=== PATIENT | female | born 1985 | race Caucasian/White ===

== ENCOUNTER 2019-08-09 17:15 | Observation (INO) ==
[2019-08-09 18:47] LABS: Bilirubin,Urine Negative (Negative); Blood,Urine Negative (Negative); Clarity,Urine Clear (Clear); Color,Urine Yellow (Yellow); Glucose,Urine (UA) Normal (Normal); Ketones,Urine Negative (Negative); Leukocyte Esterase,Urine Negative (Negative); Nitrite,Urine Negative (Negative); Protein,Urine Negative (Neg-Trace); Specific Gravity,Urine 1.022 (1.010-1.025); Urobilinogen,Urine Normal (Normal)
[2019-08-09] MEDS ORDERED: Ketorolac 15 MG/ML VIAL IVP ONE (19:27)
[2019-08-09 19:47] LABS: Basophils % 0.1 %; Eosinophils % 0.4 %; Hematocrit 40.4 % (35.3-44.9); Hemoglobin 14.3 g/dL (11.5-15.4); Immature Granulocytes % 0.5 % (0-4); Lymphocytes # 1.5 K/mcL (0.6-4.6); Lymphocytes % 19.2 %; Mean Corpuscular HGB Conc 35.4 g/dL (31.6-35.5); Mean Corpuscular Hemoglobin 30.7 pg (28.0-33.3); Mean Corpuscular Volume 86.7 fL (83.0-100.0); Mean Platelet Volume 11.2 fL (9.4-12.4); Monocytes # 0.5 K/mcL (0.0-1.3); Monocytes % 5.7 %; Neutrophils # 5.8 K/mcL (1.6-8.9); Platelet Count 256 K/mcL (140-400); Red Blood Count 4.66 M/mcL (3.82-4.97); Red Cell Distribution Width 12.9 % (11.5-14.5); Segmented Neutrophils % 74.1 %; White Blood Count 7.9 K/mcL (4.3-11.1)
[2019-08-09 20:05] LABS: Alanine Aminotransferase 34 Units/L (7-52); Albumin 4.2 g/dL (3.5-5.7); Albumin/Globulin Ratio 1.3 (1.1-2.2); Alkaline Phosphatase 64 Units/L (34-104); Aspartate Amino Transferase 16 Units/L (13-39); BUN/Creatinine Ratio 11 (6-26); Bilirubin,Direct 0.1 mg/dL (0.0-0.2); Bilirubin,Indirect 0.5 mg/dL (0.0-1.0); Bilirubin,Total 0.6 mg/dL (0.3-1.0); Blood Urea Nitrogen 7 mg/dL (6-20); Calcium 8.8 mg/dL (8.6-10.3); Carbon Dioxide 25 mEq/L (23-29); Chloride 105 mEq/L (98-107); Globulin 3.2 g/dL (2.4-3.5); Glucose 98 mg/dL (70-105); Lipase 6 Units/L (11-82); Osmolality,Calculated 282 (280-300); Potassium 3.8 mEq/L (3.5-5.1); Sodium 137 mEq/L (136-145); Total Protein 7.4 g/dL (6.4-8.9); eGFR For African Americans > 60 (> 60); eGFR For Non-African Americans > 60 (> 60)
[2019-08-09] MEDS ORDERED: *HR* FentaNYL (PF) 100 MCG/2 ML VIAL IVP ONE (20:59)
[2019-08-09] MEDS ORDERED: Morphine Sulfate 2 MG/ML SYRINGE IVP ONE (23:15)
[2019-08-10] MEDS ORDERED: Morphine Sulfate 2 MG/ML SYRINGE IVP ONE (00:44)
[2019-08-10] MEDS ORDERED: Naloxone 0.4 MG/ML INJ IVP PRN (03:50)
[2019-08-10] MEDS ORDERED: Ondansetron ODT 4 MG TAB.RAPDIS SL PRN (03:50)
[2019-08-10] MEDS: 0.9 % Sodium Chloride 1,000 ML IVC SCH ×2 (04:21→18:17)
[2019-08-10] MEDS ORDERED: Morphine Sulfate 2 MG/ML SYRINGE IVP PRN (05:10)
[2019-08-10] MEDS ORDERED: Bisacodyl 10 MG RECTAL SUPPOSITORY RC PRN (05:12)
[2019-08-10 07:12] LABS: Basophils % 0.3 %; Eosinophils # 0.1 K/mcL (0.0-0.6); Hematocrit 37.6 % (35.3-44.9); Immature Granulocytes % 0.4 % (0-4); Lymphocytes # 1.9 K/mcL (0.6-4.6); Lymphocytes % 27.3 %; Mean Corpuscular HGB Conc 34.6 g/dL (31.6-35.5); Mean Corpuscular Hemoglobin 30.6 pg (28.0-33.3); Mean Corpuscular Volume 88.5 fL (83.0-100.0); Mean Platelet Volume 11.5 fL (9.4-12.4); Monocytes # 0.5 K/mcL (0.0-1.3); Monocytes % 6.7 %; Neutrophils # 4.4 K/mcL (1.6-8.9); Platelet Count 235 K/mcL (140-400); Red Blood Count 4.25 M/mcL (3.82-4.97); Red Cell Distribution Width 13.1 % (11.5-14.5); Segmented Neutrophils % 64.3 %; White Blood Count 6.8 K/mcL (4.3-11.1)
[2019-08-10 07:31] LABS: BUN/Creatinine Ratio 14 (6-26); Blood Urea Nitrogen 10 mg/dL (6-20); Calcium 8.6 mg/dL (8.6-10.3); Carbon Dioxide 27 mEq/L (23-29); Chloride 103 mEq/L (98-107); Glucose 122 mg/dL (70-105); Osmolality,Calculated 290 (280-300); Potassium 3.4 mEq/L (3.5-5.1); Sodium 140 mEq/L (136-145); eGFR For African Americans > 60 (> 60); eGFR For Non-African Americans > 60 (> 60)
[2019-08-10] MEDS: Docusate Oral Soln 100 MG/10 ML UDC PO SCH (07:54)
[2019-08-10] MEDS ORDERED: Potassium Chloride Elixir 20 MEQ/15 ML UDC PO ONE (10:39)
[2019-08-10] MEDS ORDERED: Isovue-370 500 ML BOTTLE IVP ONE (13:51)
[2019-08-10] MEDS: Ketorolac 15 MG/ML VIAL IVP PRN (17:11)
[2019-08-10] MEDS ORDERED: MethylPREDNISolone 40 MG/ML VIAL IVP ONE (19:00)
[2019-08-11] MEDS: Ketorolac 15 MG/ML VIAL IVP PRN ×2 (01:30→07:55)
[2019-08-11] MEDS ORDERED: MethylPREDNISolone 40 MG/ML VIAL IVP ONE ×2 (02:00→07:00)
[2019-08-11] MEDS ORDERED: Morphine Sulfate 2 MG/ML SYRINGE IVP ONE (04:48)
[2019-08-11] MEDS: Docusate Oral Soln 100 MG/10 ML UDC PO SCH (07:55)
[2019-08-11] MEDS ORDERED: Psyllium 1 PACKET POWD.PACK PO SCH (09:00)
[2019-08-11 11:21] VITALS: BP 138/92
== END 2019-08-11 16:02 | disposition home or self-care (01) ==
LOC: CDU 17:15 → EMEROOARM 17:15 → SUATTDRO 08-10 02:56 → CDU 08-10 03:22
PROVIDERS: ADMIT Family Medicine; ATTEND Internal Medicine